=== PATIENT | female | born 1955 | race Caucasian/White ===

== ENCOUNTER 2018-01-19 21:48 | Emergency (ER) | payer OTHER ==
[2018-01-19 21:55] VITALS: BP 151/94
--- NOTE | 2018-01-19 21:57 | ED Physician Documentation ---
PD HPI LOWER EXT INJURY - Stated complaint Stated Complaint: FOOT INJURY - Chief complaint Chief Complaint: Ext Problem - History obtained from History obtained from: Patient - History of Present Illness PD HPI LOW EXT INJURY LOCATION: Right, Left, Foot, Other (both feet, left knee) Type of injury: Fall Where injury occurred: Street Timing - onset: Enter time (13:00), Today Timing - duration: Hours Timing - details: Abrupt onset Improved by: Rest Worsened by: Moving, Palpating Associated symptoms: Swelling. No: Weakness, Numbness Recently seen: Not recently seen - Additional information Additional information: at approximately 1 PM today, stepped on edge of curb, causing right ankle to twist and patient to then fall to ground. She c/o sudden onset, gradually worsening pain right foot (lateral aspect), left foot (bases of great toe as well as 5th toe), and left knee Review of Systems Musculoskeletal: reports: Extremity pain, Extremity swelling, Pain with weight bearing (able to weight bear although worse with weight bearing) Neurologic: denies: Focal weakness, Numbness PD PAST MEDICAL HISTORY - Past Medical History Past Medical History: No - Present Medications Home Medications: Ambulatory Orders Medication Instructions Recorded Confirmed Citalopram [CeleXA] 10 mg PO ONCE 01/19/18 01/19/18 oxyCODONE/ACET 5/325 [Percocet 5 1 - 2 each PO Q6H PRN #14 tablet 01/19/18 mg/325 mg] - Allergies Allergies/Adverse Reactions: Allergies Allergy/AdvReac Type Severity Reaction Status Date / Time meperidine [From Demerol] Allergy Unknown Verified 01/19/18 21:56 - Living Situation Living Arrangement: reports: At home PD ED PE NORMAL - Vitals Vital signs reviewed: Yes - General General: Alert and oriented X 3, No acute distress, Well developed/nourished - Extremities Extremities: No edema - Neuro Neuro: No motor deficit, No sensory deficit PD ED PE EXPANDED - Extremities Extremities: Other (tenderness left knee: direct patellar tenderness. tenderness right foot, lateral aspect (along fifth metatarsal). tenderness left foot at bases of great toe and 5th toe) Results - Vitals Vitals: Vital Signs - 24 hr 01/19/18 21:53 Temperature 36.1 C L Heart Rate 81 Respiratory 20 Rate Blood Pressure 151/94 H O2 Saturation 99 Oxygen O2 Source Room air - Rads (name of study) bilateral foot xrays Radiology: Prelim report reviewed, See rad report left knee xrays Radiology: Prelim report reviewed, See rad report PD MEDICAL DECISION MAKING - ED course Complexity details: reviewed results, re-evaluated patient, considered differential, d/w patient - Sepsis Event Vital Signs: Vital Signs - 24 hr 01/19/18 21:53 Temperature 36.1 C L Heart Rate 81 Respiratory 20 Rate Blood Pressure 151/94 H O2 Saturation 99 Oxygen O2 Source Room air Departure - Departure Disposition: 01 Home, Self Care Clinical Impression: Left knee sprain, Foot fracture, left, Sprain of foot, right Condition: Good Instructions: ED Bandage Elastic Wrap, ED Fx Foot, ED Sprain Foot, ED Sprain Knee Prescriptions: oxyCODONE/ACET 5/325 [Percocet 5 mg/325 mg] 1 - 2 each PO Q6H PRN #14 tablet PRN Reason: Pain Comments: Follow up with your primary care physician in 5-7 days. Discharge Date/Time: 01/20/18 00:02
--- NOTE | 2018-01-19 22:50 | XRAY Report ---
Procedure Date: 01/19/2018 Accession Number: [id number] / [id number] Procedure: XR - Foot 3 View BILAT CPT Code: FULL RESULT: EXAMS: 1. RIGHT FOOT RADIOGRAPHY 2. LEFT FOOT RADIOGRAPHY EXAM DATE: 01/19/2018 10:40 PM. CLINICAL HISTORY: Fall, bilateral pain and tenderness. COMPARISON: None. TECHNIQUE: 3 views each foot. FINDINGS: Right: Bones: Normal. No fractures or bone lesions. Joints: No malalignment. Mild medial angulation of the second toe, likely normal variant. Minimal degenerative changes at the first metatarsophalangeal joint. Soft Tissues: Normal. No soft tissue swelling. Left: Bones: Mildly displaced avulsion fracture at the base of the middle phalanx of the left fifth toe. No other left foot fractures seen. Joints: Moderate hallux valgus and mild degenerative changes at the first metatarsophalangeal joint. No acute dislocation. Soft Tissues: Normal. No soft tissue swelling. IMPRESSION: 1. No right foot fracture or dislocation. 2. Mildly displaced avulsion fracture at the base of the middle phalanx of the left fifth toe. 3. Moderate left hallux valgus and mild degenerative changes at the first MTP joint. RADIA
--- NOTE | 2018-01-19 22:52 | XRAY Report ---
Procedure Date: 01/19/2018 Accession Number: [id number] / [id number] Procedure: XR - Knee 4 View LT CPT Code: FULL RESULT: EXAM: LEFT KNEE RADIOGRAPHY EXAM DATE: 01/19/2018 10:40 PM. CLINICAL HISTORY: Fall, left knee pain and tenderness (patella). COMPARISON: None. TECHNIQUE: 4 views. FINDINGS: Bones: Normal. No fractures or bone lesions. Joints: Minimal left knee degenerative changes with spurring. No effusion. No subluxations. Soft Tissues: Normal. No soft tissue swelling. IMPRESSION: 1. No acute osseous abnormality seen in the left knee. 2. Minimal degenerative changes. RADIA
[2018-01-19] MEDS ORDERED: oxyCODONE/ACET 5/325 Prepack 4 PO STA (23:36)
== END 2018-01-20 00:02 | disposition home or self-care (01) ==
LOC: ED 21:48
DX: S83.92XA Sprain of unspecified site of left knee, initial encounter (principal); S92.502A Displaced unspecified fracture of left lesser toe(s), initial encounter for closed fracture; S93.601A Unspecified sprain of right foot, initial encounter; X50.1XXA Overexertion from prolonged static or awkward postures, initial encounter; W17.89XA Other fall from one level to another, initial encounter; Y93.01 Activity, walking, marching and hiking; Y92.480 Sidewalk as the place of occurrence of the external cause; M20.12 Hallux valgus (acquired), left foot
CPT/HCPCS: 99283